=== PATIENT | female | born 1990 | race African-American/Black ===

== ENCOUNTER 2017-11-15 09:37 | Emergency (ER) | payer OTHER ==
[2017-11-15 09:44] VITALS: BP 128/80; PULSE 99; TEMP 99.1; BMI 34.3
--- NOTE | 2017-11-15 10:08 | PDOC ---
History of Present Illness - General History Source: Patient Exam Limitations: No Limitations - History of Present Illness Initial Comments: 11/15/17 10:23 CC: Sore throat, fever, chills. HPI: The patient is a 26 year old female, with no significant past medical history, who presents to the emergency department with, four days of a sore throat, fever , chills, headache, and chest discomfort. As per patient, she describes her sore throat is ranked a 10/10 and her chest discomfort as achy. Secondary to her symptoms, she reports difficulty swallowing, decreased oral intake, and an occasional cough. She reports using Robitussin, NyQuil Severe, and Tylenol Extra Strength, with little relief. She denies a runny nose. Allergies: NKA Past surgical history: None reported. Social history: Nonsmoker. Denies EtOH use and recreational drug use. <Haley Lopez - Last Filed: 11/15/17 10:23> <Lazaro Steven - Last Filed: 11/15/17 18:44> - General Chief Complaint: Sore Throat Stated Complaint: SORE THROAT Time Seen by Provider: 11/15/17 09:59 Past History <Haley Lopez - Last Filed: 11/15/17 10:23> - Past Medical History COPD: No - Immunization History Immunization Up to Date: Yes - Suicide/Smoking/Psychosocial Hx Smoking History: Never smoked <Lazaro Steven - Last Filed: 11/15/17 18:44> - Past Medical History Allergies/Adverse Reactions: Allergies Allergy/AdvReac Type Severity Reaction Status Date / Time No Known Allergies Allergy Verified 11/15/17 09:40 Home Medications: Ambulatory Orders Penicillin V Potassium [Pen Vee K -] 500 mg PO TID #21 tablet 11/15/17 Review of Systems - Review of Systems Able to Perform ROS?: Yes Comments:: 11/15/17 10:24 ROS: A complete review of 10 out of 10 review of systems is taken and is negative apart from what is previously mentioned below and in the HPI. <Haley Lopez - Last Filed: 11/15/17 10:23> *Physical Exam - Vital Signs Last Vital Signs Temp Pulse Resp BP Pulse Ox 99.1 F 99 H 20 128/80 100 11/15/17 09:40 11/15/17 09:40 11/15/17 09:40 11/15/17 09:40 11/15/17 09:40 - Physical Exam Comments: 11/15/17 10:25 Vitals: Triage Vital signs reviewed General Appearance: no acute distress, well nourished well developed, Head: Atraumatic, normocephalic Nose: Nares patent bilaterally;no nasal congestion Throat: +Large tonsils with exudate. +Cervical lymphadenopathy. Neck: Supple;No Nuchal rigidity Chest Wall: Nontender Cardiac: Regular rate and rhythm, no murmurs, no rubs, no gallops, Lungs: Clear to auscultation bilateral, good air movement bilaterally, Abdomen: Soft, nondistended, normal bowel sounds, nontender to palpation Rectal: Exam deferred Extremities: Full range of motion to all extremities, no cyanosis, clubbing, or edema Skin: Warm and dry, no rashes or lesions, no petechiae Psych: normal mood, normal affect <Haley Lopez - Last Filed: 11/15/17 10:23> - Vital Signs Last Vital Signs Temp Pulse Resp BP Pulse Ox 99.1 F 99 H 20 128/80 100 11/15/17 09:40 11/15/17 09:40 11/15/17 09:40 11/15/17 09:40 11/15/17 09:40 <Lazaro Steven - Last Filed: 11/15/17 18:44> Medical Decision Making - Medical Decision Making 11/15/17 10:25 The patient is a 26 year old female with no past medical history who presents to the Emergency Department with four days of a sore throat, fever, chills, headache, achy chest discomfort, and increased weakness. Will perform a rapid streptococcus culture and administer a Toradol shot. <Haley Lopez - Last Filed: 11/15/17 10:23> - Medical Decision Making Rapid strep positive. We'll treat with ten-day course of Pen-Vee K Findings, the need for follow-up, strict return instructions discussed with patient. <Lazaro Steven - Last Filed: 11/15/17 18:44> *DC/Admit/Observation/Transfer - Attestations Scribe Attestion: 11/15/17 10:28 Documentation prepared by Haley Lopez, acting as medical assembly for Lazaro Steven MD. <Haley Lopez - Last Filed: 11/15/17 10:23> <Lazaro Steven - Last Filed: 11/15/17 18:44> Diagnosis at time of Disposition: Streptococcal sore throat - Discharge Dispostion Disposition: HOME Condition at time of disposition: Good - Prescriptions Prescriptions: Penicillin V Potassium [Pen Vee K -] 500 mg PO TID #21 tablet - Patient Instructions Printed Discharge Instructions: Strep Throat Additional Instructions: Drink plenty fluids. Take penicillin as prescribed. Take Motrin 400 mg every 4- 6 hours as needed for throat pain or fever. Return to ED for any severe worsening symptoms of breathing difficulty swallowing if any concerns. - Post Discharge Activity Forms/Work/School Notes: Back to Work
[2017-11-15] MEDS ORDERED: IBUPROFEN 400 MG TABLET (FP) PO ONE ×2 (10:11→10:28)
[2017-11-15] MEDS ORDERED: DEXAMETHASONE SOD PHOSPHATE 4 MG/1 ML VIAL IM ONE (10:11)
[2017-11-15] MEDS ORDERED: DEXAMETHASONE SOD PHOSPHATE 4 MG/1 ML VIAL ONE (10:27)
== END 2017-11-15 11:58 | disposition home or self-care (01) ==
LOC: JERFT 09:37 → JER 09:37
PROC: 3E0233Z Introduction of Anti-inflammatory into Muscle, Percutaneous Approach (ICD-10-PCS; principal; 2017-11-15)
DX: J02.0 Streptococcal pharyngitis (principal); B95.0 Streptococcus, group A, as the cause of diseases classified elsewhere
CPT/HCPCS: 87070; 87077; 87430; 99281-25